=== PATIENT | male | born 1990 | race African-American/Black ===

== ENCOUNTER 2017-08-20 00:33 | Emergency (ER) | payer SELFPAY | END 2017-08-20 01:35 | disposition home or self-care (01) | LOC: ERS 00:33 | DX: Z04.1 Encounter for examination and observation following transport accident (principal); Z71.6 Tobacco abuse counseling; F17.210 Nicotine dependence, cigarettes, uncomplicated; V43.52XA Car driver injured in collision with other type car in traffic accident, initial encounter | CPT/HCPCS: 99406 ==

== ENCOUNTER 2018-08-14 18:32 | Emergency (ER) | payer SELFPAY ==
[2018-08-14] MEDS ORDERED: Lorazepam 2 MG/ML VIAL ONE (18:56)
[2018-08-14] MEDS ORDERED: Adacel (T-DAP) 0.5 ML SYRINGE ONE (18:56)
--- NOTE | 2018-08-14 19:33 | RAD ---
RIGHT FOREARM TWO VIEWS: 08/14/18 HISTORY: Injury, right forearm pain. Patient went through a screen door window, laceration. FINDINGS/IMPRESSION: The right radius and ulna are intact. Multiple foreign bodies are seen in the anterior aspect of the soft tissues of the proximal forearm. POS: [facility]
[2018-08-14] MEDS ORDERED: Lidocaine 1% w/Epinephrine 1:100K 20 ML VIAL ONE ×2 (19:43→20:33)
[2018-08-14] MEDS ORDERED: Bacitracin 1 PK ONE (21:43)
== END 2018-08-14 22:00 | disposition home or self-care (01) ==
LOC: ERS 18:32
DX: S51.821A Laceration with foreign body of right forearm, initial encounter (principal); F17.210 Nicotine dependence, cigarettes, uncomplicated; W25.XXXA Contact with sharp glass, initial encounter
CPT/HCPCS: 12006; 90471; 90715; 96372; J2001; J2060

== ENCOUNTER 2018-11-02 11:39 | Emergency (ER) | payer OTHER | END 2018-11-02 12:19 | disposition admitted as inpatient to this hospital (09) | LOC: ERS 11:39 | DX: S50.851A Superficial foreign body of right forearm, initial encounter (principal); W25.XXXA Contact with sharp glass, initial encounter | CPT/HCPCS: 99282 ==

== ENCOUNTER 2018-11-20 18:13 | Emergency (ER) | payer OTHER ==
--- NOTE | 2018-11-20 20:17 | RAD ---
XR Forearm Rt 2 View STANDARD: 11/20/2018 7:56 PM CLINICAL INDICATION: Foreign body evaluation COMPARISON: 08/14/2018 FINDINGS: 5 separate linear radiopaque densities are present at the anteromedial aspect of the proximal right f orearm. No fracture is seen. IMPRESSION: Multiple radiopaque densities of the proximal right forearm soft tissues.
== END 2018-11-20 21:06 | disposition home or self-care (01) ==
LOC: ERS 18:13
DX: S50.851A Superficial foreign body of right forearm, initial encounter (principal); F17.210 Nicotine dependence, cigarettes, uncomplicated; Z71.6 Tobacco abuse counseling; W25.XXXA Contact with sharp glass, initial encounter
CPT/HCPCS: 99406

== ENCOUNTER 2021-08-30 16:31 | Inpatient (IN) | payer OTHER, SELFPAY ==
[~2021-08-30 16:31] MED LIST: Magnevist 469MG/ML 20 ML VIAL ONE
[2021-08-30 17:18] LABS: #Lymphocytes 1.4 thou/uL (1.20-3.40); #Neutrophils 10.8 thou/uL (1.40-6.50); %Eosinophils 0.2 % (0.0-10.0); %Lymphocytes 10.7 % (21.0-51.0); %Monocytes 7.8 % (0.0-10.0); %Neutrophils 81.3 % (42.0-75.0); Hemoglobin 14.9 g/dL (14.0-18.0); Mean Corpuscular HGB CONC 32.7 g/dL (32.0-36.0); Mean Corpuscular Hemoglobin 28.3 pg (27.0-31.0); Mean Corpuscular Volume 86.5 fL (78.0-98.0); Mean Platelet Volume 7.7 fL (7.4-10.4); Platelet Count 211 thou/uL (130-400); RBC Distribution Width 12.6 % (11.5-14.5); Red Blood Cell (RBC) Count 5.28 mill/uL (4.70-6.10); White Blood Cell (WBC) Count 13.3 thou/uL (4.8-10.8)
[2021-08-30] MEDS ORDERED: Lidocaine 1% MPF 2 ML VIAL ONE (17:36)
[2021-08-30 17:38] LABS: ALT (SGPT) 34 U/L (8-55); AST (SGOT) 21 U/L (5-34); Albumin 4.7 g/dL (3.5-5.0); Alkaline Phosphatase 54 U/L (40-110); Anion Gap 12 mmol/L (10-20); BUN (Urea Nitrogen) 14 mg/dL (8.9-20.6); Bilirubin, Total 0.6 mg/dL (0.2-1.2); Calc. Creatinine Clearance 0 mL/min (70-130); Calcium 9.7 mg/dL (7.8-10.44); Carbon Dioxide 27 mmol/L (22-29); Chloride 103 mmol/L (98-107); Estimated GFR 76; Globulin 3.8 g/dL (2.4-3.5); Glucose 100 mg/dL (70-105); Potassium 4.1 mmol/L (3.5-5.1); Protein, Total 8.5 g/dL (6.0-8.3); Sodium 138 mmol/L (136-145)
[2021-08-30] MEDS ORDERED: Acetaminophen 500 MG TAB ONE (18:34)
[2021-08-30] MEDS ORDERED: Cefepime 2 GM VIAL ONE (18:34)
[2021-08-30] MEDS ORDERED: Vancomycin 1.5 GRAM/300 ML BAG 1.5 GM in Premix Bag 1 BAG IVPB SCH (19:00)
[2021-08-30 20:13] VITALS: BMI 34.9
[2021-08-30] MEDS ORDERED: Ibuprofen 600 MG TAB PO PRN (20:35)
[2021-08-31] MEDS: Acetaminophen 325 MG TAB PO PRN ×2 (05:31→20:04)
[2021-08-31] MEDS: Cefepime 2 GM in Sodium Chloride 0.9% 100 ML IVPB SCH ×2 (05:32→17:57)
[2021-08-31] MEDS: Amlodipine 10 MG TAB PO SCH (07:53)
[2021-08-31] MEDS: Carvedilol 3.125 MG TAB PO SCH ×2 (07:53→20:05)
[2021-08-31] MEDS: VANCOMYCIN 1.25 GM/250 ML BAG 1.25 GM in Premix Bag 1 BAG IVPB SCH ×2 (11:28→23:03)
[2021-09-01] MEDS: Cefepime 2 GM in Sodium Chloride 0.9% 100 ML IVPB SCH ×2 (05:34→17:46)
[2021-09-01] MEDS: Carvedilol 3.125 MG TAB PO SCH ×2 (08:47→20:14)
[2021-09-01] MEDS: Amlodipine 10 MG TAB PO SCH (08:47)
[2021-09-01 10:22] LABS: #Eosinphils 0.3 thou/uL (0.0-0.7); #Lymphocytes 2.2 thou/uL (1.20-3.40); #Monocytes 1.2 thou/uL (0.11-0.59); #Neutrophils 7.5 thou/uL (1.40-6.50); %Basophils 0.4 % (0.0-1.0); %Eosinophils 2.3 % (0.0-10.0); %Lymphocytes 19.6 % (21.0-51.0); %Monocytes 10.8 % (0.0-10.0); Hemoglobin 14.7 g/dL (14.0-18.0); Mean Corpuscular HGB CONC 32.9 g/dL (32.0-36.0); Mean Corpuscular Volume 85.2 fL (78.0-98.0); Mean Platelet Volume 7.6 fL (7.4-10.4); Platelet Count 196 thou/uL (130-400); RBC Distribution Width 12.3 % (11.5-14.5); Red Blood Cell (RBC) Count 5.24 mill/uL (4.70-6.10); White Blood Cell (WBC) Count 11.2 thou/uL (4.8-10.8)
[2021-09-01 10:39] LABS: Anion Gap 16 mmol/L (10-20); BUN (Urea Nitrogen) 18 mg/dL (8.9-20.6); Calc. Creatinine Clearance 143 mL/min (70-130); Calcium 9.2 mg/dL (7.8-10.44); Carbon Dioxide 22 mmol/L (22-29); Chloride 104 mmol/L (98-107); Estimated GFR 94; Glucose 90 mg/dL (70-105); Potassium 3.9 mmol/L (3.5-5.1); Sodium 138 mmol/L (136-145)
[2021-09-01] MEDS: VANCOMYCIN 1.25 GM/250 ML BAG 1.25 GM in Premix Bag 1 BAG IVPB SCH ×3 (10:41→23:53)
[2021-09-01] MEDS ORDERED: Neomycin-Polymyxin 1 ML AMP ONE (17:31)
[2021-09-01] MEDS ORDERED: fentaNYL Citrate/PF 100 MCG/2 ML SYRINGE ONE (17:33)
[2021-09-01] MEDS ORDERED: Ondansetron PF 4 MG/2 ML Vial ONE (17:50)
[2021-09-01] MEDS ORDERED: PROPOFOL 200 MG/20 ML VIAL ONE (17:50)
[2021-09-01] MEDS ORDERED: Lidocaine 1% PF 5 ML VIAL ONE (17:50)
[2021-09-01] MEDS ORDERED: HYDROmorphone 2 MG/ML VIAL ONE (18:16)
[2021-09-01] MEDS ORDERED: Promethazine HCl 25 MG/ML VIAL IM PRN (18:37)
[2021-09-01] MEDS ORDERED: Meperidine HCl/PF 25 MG/ML VIAL SLOW IVP PRN ×2 (18:37)
[2021-09-01] MEDS ORDERED: Ondansetron HCl/PF 4 MG/2 ML Vial IVP PRN (18:37)
[2021-09-01] MEDS ORDERED: Promethazine HCl 25 MG/ML VIAL IVPB PRN (18:37)
[2021-09-01] MEDS ORDERED: Ketorolac Tromethamine 30 MG/ML VIAL IVP PRN (18:37)
[2021-09-01] MEDS ORDERED: Fentanyl 100 MCG/2 ML VIAL ONE ×2 (18:46→19:21)
[2021-09-01] MEDS: Acetaminophen 325 MG TAB PO PRN (20:55)
[2021-09-01] MEDS ORDERED: Naproxen 500 MG TAB PO PRN (23:31)
[2021-09-01] MEDS: Ibuprofen 200 MG TAB PO PRN (23:46)
[2021-09-02] MEDS: Ibuprofen 200 MG TAB PO PRN (03:56)
[2021-09-02] MEDS: Cefepime 2 GM in Sodium Chloride 0.9% 100 ML IVPB SCH ×2 (05:17→18:29)
[2021-09-02 06:23] LABS: #Eosinphils 0.2 thou/uL (0.0-0.7); #Lymphocytes 1.8 thou/uL (1.20-3.40); #Monocytes 1.3 thou/uL (0.11-0.59); #Neutrophils 5.6 thou/uL (1.40-6.50); %Basophils 0.4 % (0.0-1.0); %Eosinophils 2.4 % (0.0-10.0); %Lymphocytes 20.2 % (21.0-51.0); %Monocytes 14.6 % (0.0-10.0); %Neutrophils 62.4 % (42.0-75.0); Hemoglobin 12.5 g/dL (14.0-18.0); Mean Corpuscular HGB CONC 33.3 g/dL (32.0-36.0); Mean Corpuscular Hemoglobin 28.4 pg (27.0-31.0); Mean Corpuscular Volume 85.2 fL (78.0-98.0); Mean Platelet Volume 7.8 fL (7.4-10.4); Platelet Count 188 thou/uL (130-400); RBC Distribution Width 12.2 % (11.5-14.5); Red Blood Cell (RBC) Count 4.41 mill/uL (4.70-6.10)
[2021-09-02] MEDS: VANCOMYCIN 1.25 GM/250 ML BAG 1.25 GM in Premix Bag 1 BAG IVPB SCH ×3 (08:26→23:07)
[2021-09-02] MEDS: Amlodipine 10 MG TAB PO SCH (08:26)
[2021-09-02] MEDS: Carvedilol 3.125 MG TAB PO SCH ×2 (08:27→20:40)
[2021-09-02] MEDS: Ibuprofen 600 MG TAB PO PRN ×3 (10:08→23:08)
[2021-09-02 23:48] LABS: Vancomycin, Trough 13.2 ug/mL
[2021-09-03] MEDS: Cefepime 2 GM in Sodium Chloride 0.9% 100 ML IVPB SCH (05:07)
[2021-09-03 05:30] LABS: #Basophils 0.1 thou/uL (0.0-0.2); #Eosinphils 0.4 thou/uL (0.0-0.7); #Lymphocytes 2.3 thou/uL (1.20-3.40); #Monocytes 0.8 thou/uL (0.11-0.59); %Basophils 0.8 % (0.0-1.0); %Eosinophils 6.7 % (0.0-10.0); %Lymphocytes 34.8 % (21.0-51.0); %Neutrophils 45.7 % (42.0-75.0); Hemoglobin 13.1 g/dL (14.0-18.0); Mean Corpuscular HGB CONC 32.4 g/dL (32.0-36.0); Mean Corpuscular Hemoglobin 28.2 pg (27.0-31.0); Mean Corpuscular Volume 87.1 fL (78.0-98.0); Mean Platelet Volume 7.4 fL (7.4-10.4); Platelet Count 208 thou/uL (130-400); RBC Distribution Width 12.6 % (11.5-14.5); Red Blood Cell (RBC) Count 4.65 mill/uL (4.70-6.10); White Blood Cell (WBC) Count 6.7 thou/uL (4.8-10.8)
[2021-09-03] MEDS ORDERED: Vancomycin 1.5 GRAM/300 ML BAG 1.5 GM in Premix Bag 1 BAG IVPB SCH (06:00)
[2021-09-03 06:06] LABS: Anion Gap 13 mmol/L (10-20); BUN (Urea Nitrogen) 13 mg/dL (8.9-20.6); Calc. Creatinine Clearance 190 mL/min (70-130); Calcium 8.6 mg/dL (7.8-10.44); Carbon Dioxide 22 mmol/L (22-29); Chloride 109 mmol/L (98-107); Estimated GFR 122; Glucose 87 mg/dL (70-105); Potassium 4.1 mmol/L (3.5-5.1); Sodium 140 mmol/L (136-145)
[2021-09-03 07:22] LABS: Hemoglobin A1c 5.7 % (4.0-6.0)
[2021-09-03 07:51] VITALS: BP 163/83; TEMP 98.3
[2021-09-03] MEDS: Ibuprofen 600 MG TAB PO PRN ×2 (08:24→14:43)
[2021-09-03] MEDS: Carvedilol 3.125 MG TAB PO SCH (08:25)
[2021-09-03] MEDS: Amlodipine 10 MG TAB PO SCH (08:25)
[2021-09-03] MEDS ORDERED: Fentanyl 100 MCG/2 ML VIAL SLOW IVP SCH (10:15)
[2021-09-03] MEDS ORDERED: Cephalexin 250 MG CAP PO SCH (15:00)
[2021-09-04] MEDS ORDERED: Losartan 25 MG TAB PO SCH (09:00)
== END 2021-09-03 19:22 | DRG 872 ==
LOC: ERS 16:31 → T4-B 18:34 → EEVIPCON 18:34 → OBSVTOIN 08-31 15:22
PROVIDERS: ADMIT Family Medicine; ATTEND Student in an Organized Health Care Education/Training Program
PROC: 0SJD3ZZ Inspection of Left Knee Joint, Percutaneous Approach (ICD-10-PCS; 2021-08-31)
PROC: 3E03329 Introduction of Other Anti-infective into Peripheral Vein, Percutaneous Approach (ICD-10-PCS; 2021-08-31)
PROC: 0J9P0ZX Drainage of Left Lower Leg Subcutaneous Tissue and Fascia, Open Approach, Diagnostic (ICD-10-PCS; principal; 2021-09-02)
DX: A40.8 Other streptococcal sepsis (principal); L02.416 Cutaneous abscess of left lower limb; Z20.822 Contact with and (suspected) exposure to COVID-19; I10 Essential (primary) hypertension; F12.10 Cannabis abuse, uncomplicated; F17.210 Nicotine dependence, cigarettes, uncomplicated; M71.062 Abscess of bursa, left knee; Z79.899 Other long term (current) drug therapy
CPT/HCPCS: 20610; 36415; 80048; 80053; 80202; 83036; 83605; 84550; 85025; 85652; 86140; 87040; 87070; 87077; 87205; 93005; 96374; 96375; 96376; 97139; A9579; G0378; J0692; J1170; J2405; J2704; J3010; J3370; J3490; U0003; U0005